=== PATIENT | female | born 1965 | race Caucasian/White ===

== ENCOUNTER → 2021-06-13 | Outpatient (CLI) | payer BC | LOC: M RAD 11:21 | PROVIDERS: ATTEND Physician Assistant | DX: S52.92XA Unspecified fracture of left forearm, initial encounter for closed fracture (principal); W18.30XA Fall on same level, unspecified, initial encounter; Y92.009 Unspecified place in unspecified non-institutional (private) residence as the place of occurrence of the external cause ==

== ENCOUNTER → 2023-04-22 | Outpatient (CLI) | payer BC ==
[2023-04-22 12:35] LABS: ALBUMIN 3.8 G/DL (3.2-5.2); ALKALINE PHOSPHATASE 62 U/L (46-116); ALT/SGPT 24 U/L (7.0-40); AST/SGOT 18 U/L (<34); BILIRUBIN,TOTAL 0.7 MG/DL (0.3-1.2); BLOOD UREA NITROGEN 13 MG/DL (9-23); CALCIUM LEVEL 9.1 MG/DL (8.5-10.1); CARBON DIOXIDE LEVEL 29 MMOL/L (20-31); CHLORIDE LEVEL 103 MMOL/L (98-107); CREATININE FOR GFR 0.64 MG/DL (0.55-1.30); GLOMERULAR FILTRATION RATE > 60.0 (>51); GLUCOSE, FASTING 79 MG/DL (60-100); POTASSIUM SERUM 4.1 MMOL/L (3.5-5.1); SODIUM LEVEL 138 MMOL/L (136-145); TOTAL PROTEIN 6.8 G/DL (5.7-8.2)
== END ==
LOC: M RAD 11:17
PROVIDERS: ATTEND Dermatology
DX: D86.3 Sarcoidosis of skin (principal)

== ENCOUNTER → 2024-10-30 | Outpatient (CLI) | payer BC | LOC: M SOG 07:07 | PROVIDERS: ATTEND Physician Assistant | DX: S62.232D Other displaced fracture of base of first metacarpal bone, left hand, subsequent encounter for fracture with routine healing (principal) ==

== ENCOUNTER → 2024-12-18 | Outpatient (CLI) | payer BC | LOC: M SOG 06:53 | PROVIDERS: ATTEND Orthopaedic Surgery Hand Surgery | DX: S62.232D Other displaced fracture of base of first metacarpal bone, left hand, subsequent encounter for fracture with routine healing (principal); W18.30XD Fall on same level, unspecified, subsequent encounter ==

== ENCOUNTER 2025-04-17 07:58 | Emergency (ER) | payer BC ==
[~2025-04-17] VITALS: Ht 160 cm; Wt 66.0 kg
[2025-04-17] MEDS ORDERED: ACET-683 PO (08:10)
[2025-04-17] MEDS: NS 0.9% IV ONE (09:15)
[2025-04-17] MEDS: [UNRECOGNIZED DRUG - OTHER] IV ONE (09:15)
[2025-04-17 09:48] LABS: BASO # 0.0 10^3/uL (0.0-0.2); BASO % 0.4 % (0.0-1.0); EOS # 0.0 10^3/uL (0.0-0.5); EOS % 0.0 % (0.0-3.0); LYMPH # 1.3 10^3/uL (1.5-5.0); LYMPH % 17.3 % (24.0-44.0); MONO # 1.1 10^3/uL (0.0-0.8); MONO % 14.0 % (2.0-8.0); NEUTROPHILS # 5.2 10^3/uL (1.5-8.5); NEUTROPHILS % 68.0 % (36.0-66.0); PLATELET COUNT, AUTOMATED 189 10^3/uL (150-450)
[2025-04-17 10:18] LABS: C REACTIVE PROTEIN QUANTITATIV 1.41 MG/DL (<1.0); CALCIUM LEVEL 8.1 MG/DL (8.3-10.6); CARBON DIOXIDE LEVEL 22 MMOL/L (20-31); CHLORIDE LEVEL 103 MMOL/L (98-107); CREATININE FOR GFR 0.72 MG/DL (0.55-1.30); GLOMERULAR FILTRATION RATE > 90.0 (>45); POTASSIUM SERUM 4.0 MMOL/L (3.5-5.1); SODIUM LEVEL 137 MMOL/L (136-145)
[2025-04-17] MEDS: ACETAMINOPHEN *IV* 1,000 MG in IV 1 EA IV ONE (10:21)
[2025-04-17 10:49] LABS: MAGNESIUM LEVEL 1.7 MG/DL (1.8-2.4)
[2025-04-17 11:11] LABS: KETONE, URINE AUTO RFX TRACE mg/dL (NEGATIVE); NITRITE, URINE AUTO RFX NEGATIVE (NEGATIVE); RBC, URINE AUTO RFX 1 /HPF (0-3); SQUAM EPITHELIAL CELL UR AURFX 1 /HPF (0-6); WBC, URINE AUTO RFX 9 /HPF (0-3)
[2025-04-17 11:18] LABS: LEUKOCYTE ESTERASE UR AUTO RFX 1+ (NEGATIVE)
[2025-04-17 11:45] VITALS: BP 105/59; TEMP 99.7; O2SAT 92
== END 2025-04-17 12:00 | disposition home or self-care (01) ==
LOC: M ED 07:58
DX: J09.X2 Influenza due to identified novel influenza A virus with other respiratory manifestations (principal); R42 Dizziness and giddiness; M54.50 Low back pain, unspecified; Z79.1 Long term (current) use of non-steroidal anti-inflammatories (NSAID)
CPT/HCPCS: 71045; 80048; 81001; 83605; 83735; 85025; 85652; 86140; 87086; 87486; 87581; 87633; 87798; 96361; 96365; 99284; J0134